=== PATIENT | male | born 1955 | race Caucasian/White ===

== ENCOUNTER 2018-01-19 10:54 | Outpatient (CLI) | payer OTHER ==
--- NOTE | 2018-01-19 14:17 | MRI ---
LEFT SHOULDER MRI WITHOUT IV CONTRAST: Date: 01/19/18 HISTORY: 62-year-old male with history of impingement syndrome left shoulder, left shoulder pain. TECHNIQUE: Multiplanar, multisequence MRI examination of the left shoulder is performed. FINDINGS: AC joint arthrosis with some focal subchondral cystic change. Mild fat stranding in the subacromial b ursa. Mild downsloping of the anterior acromion and very mild downsloping of the lateral acromion. Th ere is a small focus of bursal sided tearing of the anterior supraspinatus tendon with a small partia l thickness low grade undersurface tear, but no evidence for complete full thickness or retracted tea r. Minimal interstitial tear of the infraspinatus tendon, which is, in part, concealed. Minimal subch ondral cystic changes of the lesser tuberosity with small low grade partial thickness undersurface small bscapularis tendon tear. Biceps tendon appears intact. Small SLAP tear. Rotator cuff muscles are with in normal limits of signal and volume. IMPRESSION: AC joint arthrosis with mild anterior and lateral acromial downsloping. Small punctate low grade burs al sided tear of the supraspinatus tendon at the insertion, as well as a small low grade partial thic kness undersurface tear of the supraspinatus tendon, and small interstitial tear of the infraspinatus tendon, which appears to be mostly concealed. Small undersurface tear of the supraspinatus tendon as sociated with a small lesser tuberosity subchondral cyst. Evidence for a SLAP tear. POS: [facility]
== END 2018-01-19 10:55 | disposition home or self-care (01) ==
LOC: TBSIIMAG 10:54
PROVIDERS: ATTEND Orthopaedic Surgery
DX: M75.42 Impingement syndrome of left shoulder (principal); M19.012 Primary osteoarthritis, left shoulder; M75.102 Unspecified rotator cuff tear or rupture of left shoulder, not specified as traumatic; M85.412 Solitary bone cyst, left shoulder